=== PATIENT | male | born 1965 | race African-American/Black ===

== ENCOUNTER 2017-06-14 14:00 | Emergency (ER) | payer MEDICAID ==
[~2017-06-14] VITALS: Ht 175.3 cm; Wt 70.0 kg
[~2017-06-14 14:00] MED LIST: AMBIEN 10MG10 MG PO; ASPIRIN 81M81 MG/TA2 PO; CARAFATE 1GM1 G PO; DAZIDOX10 MG PO; FLEXERIL 1010 MG/TAB PO; FLEXERIL10 MG PO; LORTAB 5/500 501 TAB PO; OXYCONTIN 80MG80 MG; PANCREASE MT; PERCOCET 325 MG1 TAB; PRIL40 PO; PRILOSEC10 MG PO; ROXICODONE15 MG PO; SLEEPING PILL; ULTRAM 50MG TAB50 MG PO
[2017-06-14 14:01] VITALS: BP 138/85; TEMP 98.6
[2017-06-14] MEDS ORDERED: ROXICODONE15 MG PO (15:28)
[2017-06-14 15:34] VITALS: PULSE 88
== END 2017-06-14 15:35 | disposition home or self-care (01) ==
LOC: COL.ER 14:00
DX: Z76.0 Encounter for issue of repeat prescription (principal); Z79.82 Long term (current) use of aspirin